=== PATIENT | female | born 1990 | race Caucasian/White ===

== ENCOUNTER 2022-08-31 13:29 | Emergency (ER) | payer OTHER, SELFPAY ==
[2022-08-31 13:34] VITALS: BP 97/58; PULSE 74; RESP 18; TEMP 37.4; O2SAT 99
--- NOTE | 2022-08-31 14:42 | ED.URI ---
HPI - URI/Sore Throat General Chief Complaint: Upper Respiratory Infection Stated Complaint: sore throat Time Seen by Provider: 08/31/22 14:20 Source: patient, RN notes reviewed and old records reviewed Mode of arrival: ambulatory Limitations: no limitations History of Present Illness HPI Narrative: 32-year-old female who presents to [facility] with of sore throat which started last night along with some nasal drainage. Patient rates her throat pain as 4/10 is continuous and increases with seallowing. Patient has not taken any OTC medications. Patient has been vacinated for [employer] and has had COVID. Patient denies any known fevers,sweats or chills no body aches. MD elicited complaint: sore throat, rhinorrhea, nasal congestion and other Onset (ago): day(s) (1) Pain scale (0-10): 4 Treatments prior to arrival: none Related Data Home Medications Medication Instructions Recorded Confirmed norethindrone 1 mg-ethinyl 1 tablet PO DAILY 08/31/22 08/31/22 estradiol 20 mcg (24)-iron 75 mg (4) tablet (Blisovi 24 Fe) Allergies Allergy/AdvReac Type Severity Reaction Status Date / Time No Known Allergies Allergy Verified 08/31/22 14:18 Review of Systems Review of Systems: CONSTITUTIONAL: Denies malaise, chills, sweats, or fever. EYES: Denies visual changes, redness, or discharge. ENT: Reports rhinorrhea, congestion, no sinus pain, no otalgia, positive for sore throat CARDIOVASCULAR: Denies chest pain, palpitations, or edema. RESPIRATORY: No cough.? Denies dyspnea. GASTROINTESTINAL: Denies abdominal pain, nausea, vomiting, diarrhea SKIN: Denies rash or itching. MUSCULOSKELETAL: Denies myalgia. NEUROLOGIC: Denies headache. All systems reviewed & are unremarkable except as noted in HPI and below [facility] Past Medical History Medical History (Updated 09/05/22 @ 22:30 by Landy Vasques NP) Hodgkin's lymphoma chemo and radiation 2013 Social History Social History (Updated 08/31/22 @ 14:45 by Landy Vasques NP) Smoking packs per day: 0.5 Smoking cigarettes per day: 10.0 Smoking status: Current every day smoker Tobacco type: cigarettes Substance use type: does not use Living arrangements: with family Gender identity (if verbalized by the patient): Female Comments At time of signature, agree with nursing past medical, surgical, social and family history. There is no relevant family history pertinent to the presenting complaint Exam Narrative: GENERAL: Well-appearing, well-nourished, and in no acute distress. HEAD: Normocephalic EYES: PERRLA, conjunctivae clear ENT: Nares clear, turbinates edematous and erythematous, clear discharge. Mucous membranes moist. TM pearly tsai with dull light reflex bilaterally; no tragal tenderness. Oropharynx erythematous without lesions. Tonsils enlarged and with exudate on left tonsil, no drooling, no hoarseness, no trismus, uvula midline. NECK: Supple. lymphadenopathy CHEST: Clear to auscultation, breath sounds equal. No wheezing, rhonchi, rales, or stridor. No respiratory distress, speaks in full sentences.SAO2 99% on room air HEART: Regular rate and rhythm. No murmur heard. SKIN: Warm, dry, no rash. NEURO: Alert and oriented x3. PSYCH: Normal mood and affect Course Course Emergency Course: Patient is aware of diagnosis, understands and agrees to treatment plan.? Anticipatory guidance given.? Patient agrees to follow-up as directed and is aware of reasons to seek care at the emergency department. Portions of this record may have been created with voice recognition software Level of Care: Express Care Visit Vital Signs Vital signs: Vital Signs Temperature 37.4 C 08/31/22 13:34 Pulse Rate 74 08/31/22 13:34 Respiratory Rate 18 08/31/22 13:34 Blood Pressure 97/58 L 08/31/22 13:34 Pulse Oximetry 99 08/31/22 13:34 Oxygen Delivery Room Air 08/31/22 13:34 Temperature 37.4 C 08/31/22 13:34 Pulse Rate 7
== END 2022-08-31 14:50 | disposition home or self-care (01) ==
PROVIDERS: Emergency Provider Registered Nurse
DX: J02.0 Streptococcal pharyngitis (principal); F17.210 Nicotine dependence, cigarettes, uncomplicated
CPT/HCPCS: 87880; 99213; G0463

== ENCOUNTER 2022-09-26 12:22 | Emergency (ER) | payer OTHER, SELFPAY ==
[2022-09-26 12:45] VITALS: BP 101/65; PULSE 85; RESP 18; TEMP 37.1; O2SAT 100
--- NOTE | 2022-09-26 15:34 | ED.URI ---
HPI - URI/Sore Throat General Chief Complaint: Upper Respiratory Infection Stated Complaint: Sore Throat Time Seen by Provider: 09/26/22 15:34 Source: patient, RN notes reviewed and old records reviewed Mode of arrival: ambulatory Limitations: no limitations History of Present Illness HPI Narrative: 32-year-old female who presents to [facility] with complaints of 2 day history of sore throat, chills, body aches with some cough and sneezing.Patient reports that she did have recent strep throat and she did not complete all antibiotics ordered. Patient has had Covid vaccinations but did not have flu shot. Patient reports that she has been taking Ibuprofen for her symptoms. MD elicited complaint: cough and sore throat Pertinent past history: other (strep throat) Pain scale (0-10): 5 Treatments prior to arrival: ibuprofen Related Data Home Medications Medication Instructions Recorded Confirmed norethindrone 1 mg-ethinyl 1 tablet PO DAILY 08/31/22 09/30/22 estradiol 20 mcg (24)-iron 75 mg (4) tablet (Blisovi 24 Fe) Allergies Allergy/AdvReac Type Severity Reaction Status Date / Time No Known Allergies Allergy Verified 09/30/22 08:16 Review of Systems Review of Systems: CONSTITUTIONAL: Reports malaise, chills, sweats, or fever. EYES: Denies visual changes, redness, or discharge. ENT: Reports rhinorrhea, congestion, sinus pain, no no otalgia positive for sore throat. CARDIOVASCULAR: Denies chest pain, palpitations, or edema. RESPIRATORY: Reports cough.? Denies dyspnea. GASTROINTESTINAL: Denies abdominal pain, nausea, vomiting, diarrhea SKIN: Denies rash or itching. MUSCULOSKELETAL: reports myalgia. NEUROLOGIC: Denies headache. All systems reviewed & are unremarkable except as noted in HPI and below [facility] Past Medical History Medical History (Updated 10/01/22 @ 00:01 by Ursula Reed) Hodgkin's lymphoma chemo and radiation 2013 Surgical History Surgical History (Updated 10/01/22 @ 21:48 by Landy Vasques NP) History of removal of Port-a-Cath Social History Social History Smoking packs per day: 0.5 Smoking cigarettes per day: 10.0 Smoking status: Current every day smoker Tobacco type: cigarettes Substance use type: does not use Gender identity (if verbalized by the patient): Female Comments At time of signature, agree with nursing past medical, surgical, social and family history. There is no relevant family history pertinent to the presenting complaint Exam Narrative: GENERAL: Well-appearing, well-nourished, and in no acute distress. HEAD: Normocephalic EYES: PERRLA, conjunctivae clear ENT: Nares clear, turbinates edematous and erythematous, clear discharge. Mucous membranes moist. TM pearly tsai with dull light reflex bilaterally; no tragal tenderness. Oropharynx erythematous without lesions. Tonsils red and not enlarged and without exudate, no drooling, no hoarseness, no trismus, uvula midline.post nasal drainage NECK: Supple. No lymphadenopathy CHEST: Clear to auscultation, breath sounds equal. No wheezing, rhonchi, rales, or stridor. No respiratory distress, speaks in full sentences.cough, SAO2 100% on room air HEART: Regular rate and rhythm. No murmur heard. SKIN: Warm, dry, no rash. NEURO: Alert and oriented x3. PSYCH: Normal mood and affect Course Course Emergency Course: Patient is aware of diagnosis, understands and agrees to treatment plan.? Anticipatory guidance given.? Patient agrees to follow-up as directed and is aware of reasons to seek care at the emergency department. Portions of this record may have been created with voice recognition software Level of Care: Express Care Visit Vital Signs Vital signs: Vital Signs Temperature 37.1 C 09/26/22 12:45 Pulse Rate 85 09/26/22 12:45 Respiratory Rate 18 09/26/22 12:45 Blood Pressure 101/65 09/26/22 12:45 Pulse O
== END 2022-09-26 15:56 | disposition home or self-care (01) ==
PROVIDERS: Emergency Provider Registered Nurse
DX: J10.1 Influenza due to other identified influenza virus with other respiratory manifestations (principal); F17.219 Nicotine dependence, cigarettes, with unspecified nicotine-induced disorders; Z85.71 Personal history of Hodgkin lymphoma
CPT/HCPCS: 87081; 87804; 87880; 99213; G0463

== ENCOUNTER 2022-09-30 08:03 | Emergency (ER) | payer OTHER, SELFPAY ==
[2022-09-30 08:08] VITALS: BP 89/63; PULSE 72; RESP 14; TEMP 36.9; O2SAT 97
--- NOTE | 2022-09-30 08:25 | ED.URI ---
HPI - URI/Sore Throat General Chief Complaint: Upper Respiratory Infection Stated Complaint: sore throat Source: patient Mode of arrival: ambulatory Limitations: no limitations History of Present Illness HPI Narrative: 32-year-old female presents to [facility] with complaints of sore throat since yesterday. Patient reports that her and daughter were diagnosed with strep throat approximately 3 days ago. Patient has been taking [id number] ibuprofen with minimal relief. Patient reports that she was diagnosed with influenza 4 days ago. Patient denies nausea, vomiting diarrhea, fever, body aches or chills. MD elicited complaint: sore throat Onset (ago): day(s) (1) Consistency: constant Able to tolerate fluids by mouth: Yes Exacerbating factors: swallowing Context: sick contacts Treatments prior to arrival: ibuprofen Related Data Home Medications Medication Instructions Recorded Confirmed norethindrone 1 mg-ethinyl 1 tablet PO DAILY 08/31/22 09/30/22 estradiol 20 mcg (24)-iron 75 mg (4) tablet (Blisovi 24 Fe) Allergies Allergy/AdvReac Type Severity Reaction Status Date / Time No Known Allergies Allergy Verified 09/30/22 08:16 Review of Systems Constitutional: Constitutional: Denies chills, Denies fatigue, Denies fever(s) and Denies weakness ENT: Denies vertigo, Denies dizziness, Denies nasal congestion and Reports sore throat Cardiovascular: Cardiovascular: Denies chest pain Respiratory: Respiratory: Denies chest congestion, Denies cough, Denies dyspnea and Denies wheezing Gastrointestinal: Gastrointestinal: Denies abdominal pain, Denies diarrhea, Denies nausea and Denies vomiting Integumentary/Breasts: Skin/Breast: Denies rash Allergic/Immunologic: Allergic/Immunologic: Denies lip swelling, Denies throat swelling, Denies tongue swelling and Denies wheezing [facility] Past Medical History Medical History Hodgkin's lymphoma chemo and radiation 2014 Social History Social History Smoking packs per day: 0.5 Smoking cigarettes per day: 10.0 Smoking status: Current every day smoker Tobacco type: cigarettes Substance use type: does not use Gender identity (if verbalized by the patient): Female Comments At time of signature, I agree with nursing past medical, surgical, social and family history. There is no relevant family history pertinent to the presenting complaint. Exam Const: General: healthy appearing Nutritional Appearance: well nourished Orientation/consciousness: patient oriented x3 Limitations: no limitations HENMT: Head: normal to inspection Ears: external ears normal, TM's normal bilaterally and EAC's normal Face/Nose/Sinus: Normal external nose present and Normal nares present Face and sinus: normal facial exam Mouth: Yes Normal oral and palatal mucosa present Other: Moderate erythema and 1+ swelling noted to bilateral tonsils. There is no shifting uvula noted. No peritonsillar abscess noted. Eyes: Conjunctivae: conjunctivae normal Resp: Effort & Inspection: normal respiratory effort and not labored Auscultation: clear to auscultation bilaterally, no rales, no rhonchi and no wheezes Cardio: Rate: regular rate Rhythm: regular rhythm Heart sounds: no murmurs Skin: General skin exam: normal color Rashes: no rashes Wounds: no wounds Neuro: General: patient oriented x3 Speech: normal speech Psych: Affect: normal affect Attitude: cooperative Course Course Level of Care: Express Care Visit Vital Signs Vital signs: Vital Signs Temperature 36.9 C 09/30/22 08:08 Pulse Rate 72 09/30/22 08:08 Respiratory Rate 14 09/30/22 08:08 Blood Pressure 89/63 L 09/30/22 08:08 Pulse Oximetry 97 09/30/22 08:08 Oxygen Delivery Room Air 09/30/22 08:08 Temperature 36.9 C 09/30/22 08:08 Pulse Rate 72 09/30/22 08:08 Respirato
== END 2022-09-30 09:08 | disposition home or self-care (01) ==
PROVIDERS: Emergency Provider Nurse Practitioner Family
DX: J02.9 Acute pharyngitis, unspecified (principal); F17.210 Nicotine dependence, cigarettes, uncomplicated; Z85.71 Personal history of Hodgkin lymphoma; Z92.21 Personal history of antineoplastic chemotherapy; Z92.3 Personal history of irradiation
CPT/HCPCS: 87081; 87880; 99213; G0463